=== PATIENT | female | born 1980 | race Hispanic/Latino ===

== ENCOUNTER 2019-12-22 03:27 | Observation (INO) | payer OTHER ==
[~2019-12-22] VITALS: Ht 160 cm; Wt 78.0 kg
[2019-12-22 03:52] LABS: APPEARANCE,URINE Clear (CLEAR); BILIRUBIN,URINE Negative (NEGATIVE); COLOR,URINE Yellow (YELLOW); GLUCOSE, URINE (UA) Negative (NEGATIVE); KETONES,URINE Negative (NEGATIVE); LEUKOCYTE ESTERASE ,URINE Negative (NEGATIVE); NITRATE,URINE Negative (NEGATIVE); OCCULT BLOOD,URINE Large (NEGATIVE); PROTEIN,URINE Trace mg/dL (NEGATIVE); UROBILINOGEN,URINE 0.2 mg/dL (0.2-1.0)
[2019-12-22 04:06] LABS: BASOPHILS % (AUTO) 0.3 % (0.0-5.0); EOSINOPHILS % (AUTO) 1.1 % (0.0-8.0); HEMATOCRIT 40.5 % (36-48); LYMPHOCYTES % (AUTO) 17.3 % (21.0-51.0); MEAN CORPUSCULAR HEMOGLOBIN 29.6 pg (27.0-33.0); MEAN CORPUSCULAR HGB CONC 33.6 g/dL (32.0-36.0); MEAN CORPUSCULAR VOLUME 88.2 fL (79-99); NEUTROPHILS % (AUTO) 74.9 % (40.0-77.0); PLATELET COUNT (AUTO) 279 K/uL (130-400); RED BLOOD CELL COUNT(AUTO) 4.59 MIL/uL (4.00-5.50); RED CELL DISTRIBUTION WIDTH 13.1 % (11.0-15.5)
[2019-12-22] MEDS ORDERED: ACETAMINOPHEN EXTRA STRENGTH 500 MG TABLET ONE (04:28)
[2019-12-22 04:33] LABS: BACTERIA,URINE Moderate /HPF (None Seen); RBC,URINE 0-1 /HPF (0-1); WBC,URINE 0-1 /HPF (0-1)
[2019-12-22 04:40] LABS: LIPASE 117 U/L (114-286)
[2019-12-22 05:12] LABS: HCG,QUANTITATIVE 5143 mIU/mL (0-5)
[2019-12-22 08:31] VITALS: BP 122/75
[2019-12-22] MEDS ORDERED: PREN-154 PO (08:54)
[2019-12-22] MEDS ORDERED: FLU VACC QS2019-20 36MOS UP/PF 60 MCG/0.5 ML ML IM SCH ×2 (09:00)
[2019-12-22] MEDS: LACTATED RINGERS 1000ML 1,000 ML IV SCH ×3 (10:59→23:50)
[2019-12-22 11:10] VITALS: BP 124/77
[2019-12-22 16:10] VITALS: BP 127/71
[2019-12-22 19:36] VITALS: BP 135/68
--- NOTE | 2019-12-22 19:36 | NUR ---
Patient: Received patient in bed awake, alert oriented with IV of LR infusing at 125 ml/hour. No complaints of pain, plan of care discussed with her verbalizes understanding.
[2019-12-22 23:55] VITALS: BP 117/72
[2019-12-23 04:07] VITALS: BP 120/72
[2019-12-23 06:45] LABS: HEMATOCRIT 37.7 % (36-48); MEAN CORPUSCULAR HEMOGLOBIN 29.9 pg (27.0-33.0); MEAN CORPUSCULAR HGB CONC 33.2 g/dL (32.0-36.0); MEAN CORPUSCULAR VOLUME 90.2 fL (79-99); PLATELET COUNT (AUTO) 257 K/uL (130-400); RED BLOOD CELL COUNT(AUTO) 4.18 MIL/uL (4.00-5.50); RED CELL DISTRIBUTION WIDTH 13.1 % (11.0-15.5)
[2019-12-23 07:31] VITALS: BP 125/81
--- NOTE | 2019-12-23 08:50 | NUR ---
Moved pt to treatment room. Dr. aranda at bedside for endometrial biopsy. Pt tolerated well. Addendum: 12/23/19 at 1227 by SHELIA JONAS RN Amended: Links added.
[2019-12-23] MEDS: LACTATED RINGERS 1000ML 1,000 ML IV SCH (09:21)
[2019-12-23 09:46] LABS: ALBUMIN 3.1 g/dL (3.5-5.0); BILIRUBIN,TOTAL 0.2 mg/dL (0.2-1.0); CREATININE 0.6 mg/dL (0.5-1.5); POTASSIUM 3.7 mmol/L (3.5-5.1)
[2019-12-23] MEDS ORDERED: ACETAMINOPHEN 325 MG TAB PO PRN (10:45)
[2019-12-23 11:54] VITALS: BP 125/88
--- NOTE | 2019-12-23 12:15 | NUR ---
Dr. aranda at bedside Addendum: 12/23/19 at 1224 by SHELIA JONAS RN Amended: Links added.
--- NOTE | 2019-12-23 12:15 | NUR ---
verbal and written discharge instructions given, informed of the follow up appointment, no prescription given. Dr. aranda gave verbal discharge instructions and all questions answered. informed to call the doctor for any concerns, pt voiced understanding to all things discussed. Addendum: 12/23/19 at 1250 by SHELIA JONAS RN Amended: Links added.
--- NOTE | 2019-12-23 12:45 | NUR ---
pt is dismissed in stable condition, brought to private car via wheelchair by daniela rhoades. Addendum: 12/23/19 at 1251 by SHELIA JONAS RN Amended: Links added.
== END 2019-12-23 12:30 | disposition home or self-care (01) ==
LOC: EDH 03:27 → EDHIP 07:00 → WSH 08:30
PROVIDERS: ADMIT Obstetrics & Gynecology; ATTEND Obstetrics & Gynecology
DX: O00.90 Unspecified ectopic pregnancy without intrauterine pregnancy (principal); O21.0 Mild hyperemesis gravidarum; O46.91 Antepartum hemorrhage, unspecified, first trimester; O26.891 Other specified pregnancy related conditions, first trimester; R19.7 Diarrhea, unspecified; O99.211 Obesity complicating pregnancy, first trimester; E66.9 Obesity, unspecified; Z23 Encounter for immunization; Z3A.01 Less than 8 weeks gestation of pregnancy
CPT/HCPCS: 36415 ×2; 76817; 80053; 81001; 81025; 83690; 84484; 84702 ×2; 85025; 85027; 86900; 86901; 88305; 88331; 90471; 93005; 96360; 96361 ×2; 99284; G0378 ×27; J7120 ×3; Q2035; G0008

== ENCOUNTER 2022-11-13 23:44 | Emergency (ER) | payer OTHER ==
[~2022-11-13] VITALS: Ht 154.9 cm; Wt 78.9 kg
[~2022-11-13 23:44] MED LIST: IOHEXOL 350 MG/ML 100ML INFUS..BTL IV ONE; PREN-154 PO
[2022-11-14 00:29] LABS: CREATININE 0.7 mg/dL (0.5-1.5); POTASSIUM 3.6 mmol/L (3.5-5.1)
[2022-11-14 00:36] LABS: BASOPHILS % (AUTO) 0.3 % (0.0-5.0); EOSINOPHILS % (AUTO) 0.8 % (0.0-8.0); HEMATOCRIT 26.1 % (36-48); LYMPHOCYTES % (AUTO) 13.8 % (21.0-51.0); MEAN CORPUSCULAR HEMOGLOBIN 19.8 pg (27.0-33.0); MEAN CORPUSCULAR HGB CONC 29.1 g/dL (32.0-36.0); NEUTROPHILS % (AUTO) 79.8 % (40.0-77.0); PLATELET COUNT (AUTO) 408 K/uL (130-400); RED BLOOD CELL COUNT(AUTO) 3.84 MIL/uL (4.00-5.50); RED CELL DISTRIBUTION WIDTH 18.6 % (11.0-15.5); WHITE BLOOD COUNT (AUTO) 10.3 K/uL (4.8-10.8)
[2022-11-14 00:36] LABS: BILIRUBIN,URINE NEGATIVE (NEGATIVE); COLOR,URINE LIGHT-YELLOW (YELLOW); GLUCOSE, URINE (UA) NEGATIVE (NEGATIVE); KETONES,URINE 10 mg/dL (NEGATIVE); LEUKOCYTE ESTERASE ,URINE NEGATIVE Leu/uL (NEGATIVE); NITRATE,URINE NEGATIVE (NEGATIVE); OCCULT BLOOD,URINE NEGATIVE (NEGATIVE); PH,URINE 7.5 (5.0-8.0); PROTEIN,URINE NEGATIVE (NEGATIVE); UROBILINOGEN,URINE 0.2 mg/dL (0.2-1.0)
[2022-11-14 00:38] LABS: APPEARANCE,URINE CLEAR (CLEAR)
[2022-11-14 00:40] LABS: ALBUMIN 3.4 g/dL (3.5-5.0); TOTAL PROTEIN, SERUM 7.4 g/dL (6.0-8.3)
[2022-11-14] MEDS ORDERED: IOHEXOL 350 MG/ML 100ML INFUS..BTL IV ONE (00:46)
[2022-11-14] MEDS ORDERED: HYDROMORPHONE 0.5 MG SYG (0.5MG/0.5ML) IVP ONE (02:30)
[2022-11-14] MEDS ORDERED: ONDANSETRON 4MG INJ IVP ONE (02:30)
[2022-11-14 03:37] VITALS: BP 135/78
[2022-11-14] MEDS ORDERED: IBUP-1493 PO (04:01)
[2022-11-14] MEDS ORDERED: OMEP40CA21 PO (04:01)
[2022-11-14] MEDS ORDERED: ONDA-104 PO (04:01)
== END 2022-11-14 04:37 | disposition home or self-care (01) ==
LOC: EDH 23:44
DX: D64.9 Anemia, unspecified (principal); K82.4 Cholesterolosis of gallbladder; Z79.1 Long term (current) use of non-steroidal anti-inflammatories (NSAID); Z79.899 Other long term (current) drug therapy
CPT/HCPCS: 99285; 74177; 76705; 82150; 84484; 80053; 84702; 83690; 85025; 81003; 36415; 93005; 96374; 96375; Q9967; J2405; J1170

== ENCOUNTER 2022-11-24 13:54 | Emergency (ER) | payer BC, OTHER ==
[~2022-11-24] VITALS: Ht 154.9 cm; Wt 76.7 kg
[~2022-11-24 13:54] MED LIST changes: -IOHEXOL 350 MG/ML 100ML INFUS..BTL IV ONE; +OMEP40CA21 PO; +ONDA-104 PO
[2022-11-24 13:55] VITALS: BP 140/89
[2022-11-24] MEDS ORDERED: NAPR-1196 PO (14:20)
[2022-11-24] MEDS ORDERED: CEPH250 PO (14:20)
== END 2022-11-24 15:41 | disposition home or self-care (01) ==
LOC: EDH 13:54
DX: I80.9 Phlebitis and thrombophlebitis of unspecified site (principal); Z79.899 Other long term (current) drug therapy; Z79.1 Long term (current) use of non-steroidal anti-inflammatories (NSAID)

== ENCOUNTER 2022-12-17 12:22 | Inpatient (IN) | payer BC ==
[~2022-12-17] VITALS: Ht 154.9 cm; Wt 76.7 kg
[~2022-12-17 12:22] MED LIST changes: +CEPH250 PO; +NAPR-1196 PO
[2022-12-17 12:49] LABS: BASOPHILS % (AUTO) 0.6 % (0.0-5.0); EOSINOPHILS % (AUTO) 1.4 % (0.0-8.0); HEMATOCRIT 40.9 % (36-48); LYMPHOCYTES % (AUTO) 17.6 % (21.0-51.0); MEAN CORPUSCULAR HEMOGLOBIN 26.5 pg (27.0-33.0); MEAN CORPUSCULAR HGB CONC 32.5 g/dL (32.0-36.0); MEAN CORPUSCULAR VOLUME 81.5 fL (79-99); MONOCYTES % (AUTO) 5.4 % (3.0-13.0); NEUTROPHILS % (AUTO) 74.7 % (40.0-77.0); PLATELET COUNT (AUTO) 290 K/uL (130-400); RED BLOOD CELL COUNT(AUTO) 5.02 MIL/uL (4.00-5.50)
[2022-12-17 12:59] LABS: CREATININE 0.6 mg/dL (0.5-1.5); POTASSIUM 3.3 mmol/L (3.5-5.1)
[2022-12-17] MEDS ORDERED: MORPHINE 4 MG SYG IVP ONE (13:00)
[2022-12-17] MEDS ORDERED: ONDANSETRON 4MG INJ IVP ONE (13:00)
[2022-12-17 13:09] LABS: ALBUMIN 3.7 g/dL (3.5-5.0); TOTAL PROTEIN, SERUM 7.9 g/dL (6.0-8.3)
[2022-12-17 13:15] LABS: HCG,QUALITATIVE URINE NEGATIVE (NEGATIVE)
[2022-12-17 13:26] LABS: APPEARANCE,URINE CLOUDY (CLEAR); BILIRUBIN,URINE NEGATIVE (NEGATIVE); COLOR,URINE YELLOW (YELLOW); GLUCOSE, URINE (UA) NEGATIVE (NEGATIVE); KETONES,URINE NEGATIVE (NEGATIVE); LEUKOCYTE ESTERASE ,URINE NEGATIVE Leu/uL (NEGATIVE); NITRATE,URINE NEGATIVE (NEGATIVE); OCCULT BLOOD,URINE NEGATIVE (NEGATIVE); PH,URINE 8.5 (5.0-8.0); PROTEIN,URINE 50 mg/dL (NEGATIVE); UROBILINOGEN,URINE 3 mg/dL (0.2-1.0)
[2022-12-17 13:27] LABS: BACTERIA,URINE RARE /HPF (None Seen); MUCUS,URINE FEW LPF (None Seen); SQUAMOUS EPITHELIAL CELL,UR MOD /HPF (0-2); WBC,URINE 0-1 /HPF (0-1)
[2022-12-17] MEDS ORDERED: ZOSYN 3.375GM +NS 50ML IVPB SCH (15:00)
[2022-12-17] MEDS ORDERED: LIDOCAINE HCL-MPF 1% 2ML VIAL IV PRN (16:00)
[2022-12-17] MEDS ORDERED: ACETAMINOPHEN WITH CODEINE 1 TAB TAB PO PRN ×2 (16:00)
[2022-12-17] MEDS ORDERED: MAGNESIUM 2GM PREMIX 50ML 50 ML IV PRN (16:00)
[2022-12-17] MEDS ORDERED: ONDANSETRON 4MG INJ IV PRN (16:00)
[2022-12-17] MEDS ORDERED: POTASSIUM CHLORIDE 20MEQ/100ML 100 ML IV PRN (16:00)
[2022-12-17] MEDS ORDERED: ACETAMINOPHEN 325 MG TAB PO PRN ×2 (16:00)
[2022-12-17] MEDS ORDERED: MORPHINE 2 MG SYG IV PRN (16:00)
[2022-12-17] MEDS: 0.9%NACL 1000ML 1,000 ML IV SCH (16:26)
[2022-12-17 18:04] VITALS: BP 143/101
[2022-12-17] MEDS: MORPHINE 4 MG SYG IV PRN (20:03)
[2022-12-17] MEDS: ZOSYN 3.375GM+NS 50ML 50 ML IVPB SCH (20:29)
[2022-12-18] VITALS (27 sets, daily range): BP systolic 106–157; BP diastolic 53–95
[2022-12-18] MEDS: 0.9%NACL 1000ML 1,000 ML IV SCH ×3 (04:42→22:00)
[2022-12-18] MEDS: ZOSYN 3.375GM+NS 50ML 50 ML IVPB SCH ×3 (05:18→21:02)
[2022-12-18 06:57] LABS: EOSINOPHILS % (AUTO) 2.7 % (0.0-8.0); HEMATOCRIT 36.5 % (36-48); LYMPHOCYTES % (AUTO) 24.9 % (21.0-51.0); MEAN CORPUSCULAR HEMOGLOBIN 26.3 pg (27.0-33.0); MEAN CORPUSCULAR VOLUME 84.9 fL (79-99); MONOCYTES % (AUTO) 6.4 % (3.0-13.0); NEUTROPHILS % (AUTO) 64.8 % (40.0-77.0); PLATELET COUNT (AUTO) 219 K/uL (130-400); WHITE BLOOD COUNT (AUTO) 5.9 K/uL (4.8-10.8)
[2022-12-18 07:24] LABS: ALBUMIN 2.9 g/dL (3.5-5.0); BILIRUBIN,DIRECT 0.2 mg/dL (0.0-0.3); CREATININE 0.5 mg/dL (0.5-1.5); POTASSIUM 3.4 mmol/L (3.5-5.1); TOTAL PROTEIN, SERUM 6.6 g/dL (6.0-8.3)
[2022-12-18] MEDS ORDERED: BUPIVACAINE/PF 0.5% 30ML VIAL ONE (11:01)
[2022-12-18] MEDS ORDERED: LACTATED RINGERS 1000ML 1,000 ML IV ONE (12:31)
[2022-12-18] MEDS ORDERED: MIDAZOLAM HCL 1 MG/ML 2ML VIAL ONE (12:38)
[2022-12-18] MEDS ORDERED: ROCURONIUM 10MG/1ML SYR 10 MG/ML ML ONE (12:38)
[2022-12-18] MEDS ORDERED: FENTANYL CITRATE PF 50 MCG/1 ML 2ML VIAL ONE ×2 (12:38→13:28)
[2022-12-18] MEDS ORDERED: ONDANSETRON 4MG INJ ONE (12:38)
[2022-12-18] MEDS ORDERED: PROPOFOL 10 MG/ML 20ML VIAL IV ONE (12:38)
[2022-12-18] MEDS ORDERED: BUPIVACAINE/PF 0.5% 30ML VIAL INJ ONE (13:35)
[2022-12-18] MEDS ORDERED: LIDOCAINE 1%-EPI 1:100,000 20 ML VIAL IJ ONE (13:35)
[2022-12-18] MEDS ORDERED: LIDOCAINE 1%-EPI 1:100,000 20 ML VIAL IJ SCH (14:00)
[2022-12-18] MEDS ORDERED: DEXAMETHASONE SOD PHOSPHATE 10MG/ML 1ML VIAL ONE (14:03)
[2022-12-18] MEDS ORDERED: NEOSTIGMINE 5MG/5ML SYR IV ONE (14:10)
[2022-12-18] MEDS ORDERED: GLYCOPYRROLATE 1 MG/5 ML SYRINGE ONE (14:10)
[2022-12-18] MEDS ORDERED: MEPERIDINE-PF 50 MG/ML SYG ONE (14:37)
[2022-12-18] MEDS ORDERED: KETOROLAC 30MG VIAL (30MG/ML) ONE (15:22)
[2022-12-18] MEDS: MORPHINE 4 MG SYG IV PRN ×2 (15:27→21:05)
[2022-12-18] MEDS ORDERED: OXYCODONE/ACETAMIN 5/325MG TAB PO PRN (17:00)
[2022-12-19] VITALS (7 sets, daily range): BP systolic 140–176; BP diastolic 68–78
[2022-12-19] MEDS: 0.9%NACL 1000ML 1,000 ML IV SCH ×2 (02:43→19:25)
[2022-12-19] MEDS: ZOSYN 3.375GM+NS 50ML 50 ML IVPB SCH ×3 (05:39→22:16)
[2022-12-19 06:04] LABS: BASOPHILS % (AUTO) 0.4 % (0.0-5.0); EOSINOPHILS % (AUTO) 0.1 % (0.0-8.0); HEMATOCRIT 32.9 % (36-48); LYMPHOCYTES % (AUTO) 16.2 % (21.0-51.0); MEAN CORPUSCULAR HEMOGLOBIN 26.7 pg (27.0-33.0); MEAN CORPUSCULAR HGB CONC 31.6 g/dL (32.0-36.0); MEAN CORPUSCULAR VOLUME 84.4 fL (79-99); MONOCYTES % (AUTO) 7.9 % (3.0-13.0); NEUTROPHILS % (AUTO) 75.1 % (40.0-77.0); PLATELET COUNT (AUTO) 188 K/uL (130-400); WHITE BLOOD COUNT (AUTO) 7.5 K/uL (4.8-10.8)
[2022-12-19 08:19] LABS: ALBUMIN 2.7 g/dL (3.5-5.0); CREATININE 0.5 mg/dL (0.5-1.5); MAGNESIUM 1.9 mg/dL (1.80-2.40); POTASSIUM 3.5 mmol/L (3.5-5.1); TOTAL PROTEIN, SERUM 6.1 g/dL (6.0-8.3)
[2022-12-19] MEDS ORDERED: SIMETHICONE 80 MG TAB.CHEW PO SCH (09:00)
[2022-12-19] MEDS: MORPHINE 4 MG SYG IV PRN (10:02)
[2022-12-19] MEDS ORDERED: SIMETHICONE 80 MG TAB.CHEW PO PRN (12:00)
[2022-12-19] MEDS ORDERED: DiphenhydrAMINE HCL 50 MG/ML VIAL IV SCH (21:45)
[2022-12-19] MEDS ORDERED: PREDNISONE 20 MG TABLET PO SCH (21:45)
[2022-12-20 03:33] VITALS: BP 165/75
[2022-12-20] MEDS: 0.9%NACL 1000ML 1,000 ML IV SCH (04:00)
[2022-12-20] MEDS: ZOSYN 3.375GM+NS 50ML 50 ML IVPB SCH (05:04)
[2022-12-20 06:34] LABS: HEMATOCRIT 37.9 % (36-48); MEAN CORPUSCULAR HEMOGLOBIN 26.4 pg (27.0-33.0); MEAN CORPUSCULAR HGB CONC 31.9 g/dL (32.0-36.0); MEAN CORPUSCULAR VOLUME 82.8 fL (79-99); PLATELET COUNT (AUTO) 266 K/uL (130-400); RED BLOOD CELL COUNT(AUTO) 4.58 MIL/uL (4.00-5.50); WHITE BLOOD COUNT (AUTO) 5.6 K/uL (4.8-10.8)
[2022-12-20 06:52] LABS: ALBUMIN 3.2 g/dL (3.5-5.0); CREATININE 0.6 mg/dL (0.5-1.5); POTASSIUM 3.7 mmol/L (3.5-5.1); TOTAL PROTEIN, SERUM 7.3 g/dL (6.0-8.3)
[2022-12-20 08:00] VITALS: BP 153/75
== END 2022-12-20 10:50 | disposition home or self-care (01) | DRG 417 ==
LOC: EDH 12:22 → EDHIP 15:45 → 3CH 17:49
PROVIDERS: ADMIT Hospitalist; ATTEND Hospitalist
PROC: 0FT44ZZ Resection of Gallbladder, Percutaneous Endoscopic Approach (ICD-10-PCS; principal; 2022-12-18 13:08)
DX: K80.00 Calculus of gallbladder with acute cholecystitis without obstruction (principal); E43 Unspecified severe protein-calorie malnutrition; E87.6 Hypokalemia; E66.9 Obesity, unspecified; Z20.822 Contact with and (suspected) exposure to COVID-19; D64.9 Anemia, unspecified; K82.8 Other specified diseases of gallbladder; G43.909 Migraine, unspecified, not intractable, without status migrainosus; Z68.31 Body mass index [BMI] 31.0-31.9, adult; Z82.49 Family history of ischemic heart disease and other diseases of the circulatory system; Z83.3 Family history of diabetes mellitus
CPT/HCPCS: 36415; 74181; 76705; 80048; 80053; 80076; 81001; 81025; 83690; 83735; 85025; 85027; 86850; 86900; 86901; 87635; G0378; J1100; J1200; J1885; J2175; J2250; J2270; J2405; J2543; J2704; J2710; J3010; J3480; J3490; J7030; J7120